=== PATIENT | male | born 1950 | race Caucasian/White ===

== ENCOUNTER 2017-04-22 14:21 | Day surgery (SDC) | payer BC ==
[~2017-04-22 14:21] MED LIST: Buffered Lidocaine 0.9% SYRIN* 5 ML/SYR SYRINGE INTRADERM ONE; Buffered Lidocaine 0.9% SYRIN* 5 ML/SYR SYRINGE ONE; Metoclopramide TAB* 10 MG ONE; Metoclopramide TAB* 10 MG PO ONE; Sodium Citrate/Citric Acid* 15 ML UDC ONE; Sodium Citrate/Citric Acid* 15 ML UDC PO ONE; ceFAZolin 2 GM PREMIX (*) 2 GM/50 ML BAG IVPB ONE; celeCOXIB CAP* 200 MG PO ONE
[2017-04-22] MEDS ORDERED: Lidocaine 1% MPF wEPI 200,000* 30 ML SDV ONE (16:44)
[2017-04-22] MEDS ORDERED: Bupivacaine 0.25% SDV* 30 ML ONE (16:45)
[2017-04-22] MEDS ORDERED: Midazolam* 1 MG/ML 2 ML VIAL (2 MG) ONE (17:16)
[2017-04-22] MEDS ORDERED: fentaNYL* 50 MCG/ML 2 ML VIAL (100 MCG VIAL) ONE (17:16)
[2017-04-22] MEDS ORDERED: Propofol* 10 MG/ML 20 ML BTL IV PUSH ONE (17:19)
[2017-04-22] MEDS ORDERED: Ketorolac INJ* 30 MG/ML 1 ML VIAL ONE (17:32)
[2017-04-22] MEDS ORDERED: Naloxone* 0.4 MG/ML 1 ML VIAL IV PRN (17:36)
--- NOTE | 2017-04-22 18:10 | BRIEFOPN ---
Brief Operative Note - Surgery Procedures: Procedures OPERATIVE REPORT PRE-OP: Umbilical hernia POST-OP: Same PROCEDURE: Open repair with mesh (Bard Ventralex ST hernia patch 6.4 cm) of umbilical hernia SURGEON: MD Alex ANESTHESIA:Local with MAC Dr. Navarrete ASST: MICHELLE Pacheco IVF: min EBL:min SPECIMEN: none DRAIN: none WOUND CLASS: One COMPLICATIONS: none TO PACU
[2017-04-22 18:48] VITALS: BP 139/94
--- NOTE | 2017-04-23 16:44 | OP ---
DATE OF OPERATION: 04/22/17 - [facility] DATE OF : 52 SURGEON: Isaac Johnson MD SPECIAL INVESTIGATOR: MICHELLE Lyles ANESTHESIOLOGIST: Ronnie Navarrete MD ANESTHESIA: Local with monitored anesthesia care. PRE-OP DIAGNOSIS: Umbilical hernia. POST-OP DIAGNOSIS: Umbilical hernia. OPERATIVE PROCEDURE: Open repair with mesh using a 6.4-cm Bard Ventralight circular hernia mesh. ESTIMATED BLOOD LOSS: Minimal. SPECIMENS: None. DRAINS: None. COMPLICATIONS: None. WOUND CLASSIFICATION: 1. DESCRIPTION OF PROCEDURE: Written informed consent was obtained, the abdomen was marked with indelible ink, and preoperative antibiotics were administered. The patient was taken to the operating room and placed in the supine position. Sequential compression devices and a warming blanket were applied. The abdomen was prepped and draped in usual sterile fashion. Time-out verification was completed. 0.25% Marcaine mixed with 1% lidocaine was infiltrated into the periumbilical area and a semicircular incision inferior to the umbilicus was made and carried down to the midline fascia. The umbilical skin and stalk was then excised sharply off the underlying protuberance of preperitoneal fat that extended up through a hernia defect of approximately 2 cm. The fascial edges appeared to be somewhat thin and I did inadvertently enter the peritoneum at one point, but this rent was closed with a running 3-0 Polysorb suture. The retrofascial plane was then developed using combination of blunt and sharp dissection. Size 6.4-cm circular Bard mesh was then placed into this space and sutured to the underside of the fascia with two horizontal 0 Polysorb sutures using the strap device. The sun'aq fascia was then closed with interrupted 0 Polysorb sutures in a transverse orientation. Hemostasis was assured. The umbilical skin was tacked down to the fascia with a single 3-0 Polysorb suture. The wound was then closed in layers with 3-0 and 4-0 Vicryl Polysorb suture. Steri-Strips and sterile dressings were applied. The patient tolerated the procedure well, was taken to the recovery room in stable condition. [id number] #: [id number] MTDD
== END 2017-04-22 19:14 | disposition home or self-care (01) ==
LOC: OR 14:21
PROVIDERS: ATTEND Surgery
DX: K42.9 Umbilical hernia without obstruction or gangrene (principal); E78.00 Pure hypercholesterolemia, unspecified
CPT/HCPCS: A9270-GY; C1781; J0690; J1885; J2001; J2250; J2704; J3010

== ENCOUNTER 2023-05-16 18:20 | Observation (INO) ==
[2023-05-16 22:16] LABS: ABS Eosinophils 0.2 10^3/uL (0.0-0.5); ABS Lymphocytes 0.7 10^3/uL (1.0-4.8); ABS Monocytes 0.3 10^3/uL (0.0-1.1); ABS Neutrophils 2.6 10^3/uL (1.5-7.6); Eosinophil % 4.7 %; Hematocrit 37.4 % (38-53); Hemoglobin 12.2 g/dL (13.2-16.3); Lymphocyte % 18.2 %; Mean Corpuscular Hemoglobin 26.8 pg (27-33); Mean Corpuscular Hgb Conc 32.8 g/dL (31-36); Mean Corpuscular Volume 81.9 fL (80-97); Mean Platelet Volume 8.8 fL (7.5-11.2); Nucleated Red Blood Cells % 0.1 %/100WBC (0.0-0.8); Platelet Count 121 10^3/uL (150-450); Red Blood Count 4.57 10^6/uL (4.06-5.63); Red Cell Distribution Width 14.4 % (12-17); White Blood Count 3.9 10^3/uL (3.6-10.2)
[2023-05-16 22:18] LABS: Urine Appearance Clear; Urine Bilirubin Negative (Negative); Urine Blood Negative (Negative); Urine Color Straw; Urine Glucose Negative (Negative); Urine Ketones Negative (Negative); Urine Nitrite Negative (Negative); Urine Protein Negative (Negative); Urine Specific Gravity 1.008 (1.002-1.030); Urine Urobilinogen Negative (Negative)
[2023-05-16 22:29] LABS: Activated Partial Thrombo Time 33.8 seconds (26.0-38.0); INR 1.01 (0.83-1.13)
[2023-05-16 22:34] LABS: Albumin 3.9 g/dL (3.2-5.2); Albumin/Globulin Ratio 1.9 (1-3); Calcium 9.2 mg/dL (8.6-10.3); Creatinine, Serum 1.37 mg/dL (0.67-1.17); Direct Bilirubin 0.1 mg/dL (0.03-0.18); Globulin 2.1 g/dL (2-4); HDL Cholesterol 47.9 mg/dL; Indirect Bilirubin 0.5 mg/dL (0.3-1.0); Potassium 4.1 mmol/L (3.5-5.0); Total Bilirubin 0.6 mg/dL (0.2-1.0); eGFR CKD-EPI 55.2 (>60)
[2023-05-17] MEDS: Enoxaparin 40 MG/0.4 ML SYR SUBCUT SCH ×2 (00:03→09:48)
[2023-05-17] MEDS: Timolol 0.25% OPHTH.SOLN BTL BOTH EYES SCH (09:50)
[2023-05-17] MEDS: Iodixanol (CONTRAST) 320 MG/ML 100 ML SDV IV ONE (16:46)
[2023-05-17 17:45] VITALS: BP 122/77
[2023-05-17 18:54] LABS: C Reactive Protein 1.49 mg/L (<8.01)
== END 2023-05-17 18:27 | disposition home or self-care (01) ==
LOC: EDHOLD 18:20 → ED 18:20 → SUATTDRO 23:41 → MEDTELE 05-17 00:42
PROVIDERS: ADMIT Internal Medicine; ATTEND Internal Medicine